=== PATIENT | male | born 1985 | race Caucasian/White ===

== ENCOUNTER 2017-09-17 08:30 | Emergency (ER) | payer OTHER, SELFPAY ==
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
[2017-09-17] MEDS ORDERED: BACITRACIN OINTMENT 15 GM TUBE TOP ONE (12:00)
== END 2017-09-17 12:21 | disposition home or self-care (01) ==
LOC: ER 08:30
DX: T22.231A Burn of second degree of right upper arm, initial encounter (principal); T31.0 Burns involving less than 10% of body surface; T65.891A Toxic effect of other specified substances, accidental (unintentional), initial encounter; Y93.89 Activity, other specified; Y92.89 Other specified places as the place of occurrence of the external cause; Y99.0 Civilian activity done for income or pay
CPT/HCPCS: 99284